=== PATIENT | female | born 1950 | race Caucasian/White ===

== ENCOUNTER → 2020-03-23 | Outpatient (CLI) | payer MEDICARE, OTHER ==
[~2020-03-23] MED LIST: ACET500 PO; ACIDOPHILUS PROB1 MG PO; AMBIEN; CLIN300 PO; DEXA2 PO; HYDACE5 PO; IBUP400 PO; LATA.005SO BOTHEYES; MAGNESIUM PO; MULTIVITAMIN; NAPR550 PO; OXYC5; POTASSIUM CHLORIDE; PROACE100 PO; REFRESH OPTIVE10 ML BOTHEYES; TIMO.5OPSO BOTHEYES; VITAMIN D; ZOLP10 PO
== END | disposition home or self-care (01) ==
LOC: PLD 13:58 → LAB SHORT 13:58
DX: D48.5 Neoplasm of uncertain behavior of skin (principal)
CPT/HCPCS: 88305

== ENCOUNTER → 2020-06-14 | Outpatient (CLI) | payer MEDICARE, OTHER | LOC: LAB EV 10:48 → LAB SHORT 10:48 | DX: N39.0 Urinary tract infection, site not specified (principal) | CPT/HCPCS: 87077; 87086; 87186 ==

== ENCOUNTER → 2020-06-28 | Outpatient (CLI) | payer MEDICARE, OTHER | LOC: PLD 11:09 → LAB SHORT 11:09 | DX: D48.5 Neoplasm of uncertain behavior of skin (principal) | CPT/HCPCS: 88305 ==

== ENCOUNTER → 2021-09-22 | Outpatient (CLI) | payer MEDICARE | END | disposition home or self-care (01) | LOC: LAB SHORT 10:54 | DX: N39.0 Urinary tract infection, site not specified (principal) | CPT/HCPCS: 87086 ==

== ENCOUNTER 2023-02-20 11:56 | Emergency (ER) | payer MEDICARE ==
[~2023-02-20] VITALS: Ht 160 cm; Wt 52.2 kg
[2023-02-20 12:14] VITALS: BP 149/68
[2023-02-20] MEDS ORDERED: OXYACE7.5T PO (13:26)
[2023-02-20] MEDS ORDERED: CLIN300 PO (13:26)
== END 2023-02-20 14:35 | disposition home or self-care (01) ==
LOC: ER 11:56
DX: S31.824A Puncture wound with foreign body of left buttock, initial encounter (principal); W27.1XXA Contact with garden tool, initial encounter; Z88.0 Allergy status to penicillin; Z88.1 Allergy status to other antibiotic agents; Z91.048 Other nonmedicinal substance allergy status; Z79.899 Other long term (current) drug therapy
CPT/HCPCS: 72193; J2250; J2270; J2405; J3010; Q9967; S0077

== ENCOUNTER → 2023-08-30 | Outpatient (CLI) | payer MEDICARE ==
[~2023-08-30] MED LIST changes: +OXYACE7.5T PO
== END ==
LOC: LAB 09:06 → LAB SHORT 09:06
DX: N39.0 Urinary tract infection, site not specified (principal)
CPT/HCPCS: 87077; 87086; 87186

== ENCOUNTER 2025-04-13 11:35 | Day surgery (SDC) | payer OTHER ==
[~2025-04-13] VITALS: Ht 160 cm; Wt 54.0 kg
[2025-04-13 14:00] VITALS: BP 157/72
== END 2025-04-13 14:03 | disposition home or self-care (01) ==
LOC: ORSCSDS 11:35
PROVIDERS: Surgery
PROC: 0DBH8ZX Excision of Cecum, Via Natural or Artificial Opening Endoscopic, Diagnostic (ICD-10-PCS; principal; 2025-04-13 13:00)
DX: K62.5 Hemorrhage of anus and rectum (principal); D12.0 Benign neoplasm of cecum; E78.5 Hyperlipidemia, unspecified; K64.8 Other hemorrhoids; Z79.899 Other long term (current) drug therapy
CPT/HCPCS: 88305; J2704; J7120